=== PATIENT | male | born 1965 ===

== ENCOUNTER 2017-07-27 13:08 | Inpatient (IN) | payer OTHER ==
[2017-07-27 13:27] VITALS: BMI 27.4
--- NOTE | 2017-07-27 14:02 | ED PDOC ---
Arrival/HPI - General Chief Complaint: High Blood Pressure - History of Present Illness Narrative History of Present Illness (Text): 07/27/17 13:58 Pt is a 52 yo M with PMH of DM and HTN presents to ED with complaint of dizziness, dyspnea, and chest pain. Pt states that chest pain is intermittent for the past month. Pt states that chest pain is localized to left side of chest and does not radiate. Pt states chest pain and dyspnea worsens with exertion. Pt states that he became dizzy today, which prompted him to come to the ED. Pt states that he moved from the [facility] 6 months ago and has not seen a doctor since then. Pt states that he was previously on medications for HTN and DM, but has not taken any medications since moving here. Pt denies palpitations, n/v/d, abdominal pain, fever, chills, or RYAN. Past Medical History - Cardiac Hx Hypertension: Yes - Pulmonary Hx Respiratory Disorders: No - Neurological Hx Neurological Disorder: No - HEENT Hx HEENT Disorder: No - Renal Hx Renal Disorder: No - Endocrine/Metabolic Hx Diabetes Mellitus Type 2: Yes - Hematological/Oncological Hx Blood Disorders: No - Integumentary Hx Dermatological Disorder: No - Musculoskeletal/Rheumatological Hx Musculoskeletal Disorders: No - Gastrointestinal Hx Gastrointestinal Disorders: No - Genitourinary/Gynecological Hx Genitourinary Disorders: No - Psychiatric Hx Psychophysiologic Disorder: No Hx Substance Use: No Family/Social History Family/Social History: No Known Family HX Smoking Status: Never Smoked Hx Alcohol Use: No Hx Substance Use: No Allergies/Home Meds Allergies/Adverse Reactions: Allergies No Known Allergies Allergy (Verified 07/27/17 13:27) Home Medications: Home Meds Medication Instructions Recorded Confirmed No Known Home Med 07/27/17 07/27/17 Review of Systems - Review of Systems Constitutional: Normal Eyes: Normal ENT: Normal Respiratory: SOB Cardiovascular: Chest Pain Gastrointestinal: Normal Genitourinary Male: Normal Musculoskeletal: Normal Skin: Normal Neurological: Normal Endocrine: Normal Hemo/Lymphatic: Normal Psychiatric: Normal Physical Exam Vital Signs Temp Pulse Resp BP Pulse Ox 07/27/17 15:55 81 16 119/78 98 07/27/17 15:32 98 H 149/104 H 07/27/17 15:08 105 H 159/122 H 07/27/17 14:31 97.9 F 102 H 17 151/111 H 99 07/27/17 13:17 97.7 F 104 H 18 159/115 H 97 Temperature: Afebrile Blood Pressure: Normal Pulse: Regular Respiratory Rate: Normal Appearance: Positive for: Uncomfortable Pain Distress: Moderate Mental Status: Positive for: Alert and Oriented X 3 - Systems Exam Head: Present: Atraumatic, Normocephalic Extroacular Muscles: Present: EOMI Mouth: Present: Moist Mucous Membranes Neck: Present: Normal Range of Motion Respiratory/Chest: Present: Clear to Auscultation. No: Respiratory Distress, Accessory Muscle Use, Wheezes, Rales, Rhonchi Cardiovascular: Present: Normal S1, S2, Tachycardic. No: Murmurs, Rub, Gallop Abdomen: Present: Tenderness. No: Distention, Peritoneal Signs, Guarding Upper Extremity: Present: Normal Inspection Lower Extremity: Present: Normal Inspection Neurological: Present: GCS=15 Skin: Present: Warm, Dry, Normal Color Psychiatric: Present: Alert, Oriented x 3 Medical Decision Making ED Course and Treatment: 07/27/17 14:11 Assessment: 52 yo M with PMH of HTN and DM presents with chest pain, dyspnea on exertion, and dizziness. Plan: - CBC - CMP - Cardiac Enzymes - EKG - CXR - ASA - Coags - Hydralazine, Labetolol 07/27/17 14:17 EKG showed sinus tachycardia, inverted T-waves V4-V6, LVH. 07/27/17 14:46 CXR showed no active disease 07/27/17 15:16 Troponin I negative 07/27/17 15:[address] Powell, accepts patient under hospitalist service to telemetry. - Lab Interpretations Lab Results: 07/27/17 14:20 07/27/17 14:20 Lab Results 07/27/17 14:20: Sodium 142, Potassium 3.7, Chloride 104, Carbon Dioxide 28, Anion Gap 14, BUN 16, Creatinine 0.8, Est GFR ( Amer) > 60, Est GFR (Non- Af Amer) > 60, Random Glucose 138 H, Calcium 8.9, Magnesium 1.8, Total Bilirubin 0.9, AST 45, ALT 48, Alkaline Phosphatase 57, Lactate Dehydrogenase 771 H, Total Creatine Kinase 116, Troponin I 0.01, Total Protein 6.7, Albumin 3.6, Globulin 3.1, Albumin/Globulin Ratio 1.2 07/27/17 14:20: PT 14.9 H, INR 1.30 H, APTT 29.3 07/27/17 14:20: WBC 7.3, RBC 5.41, Hgb 15.7, Hct 47.0, MCV 86.9, MCH 29.0, MCHC 33.4, RDW 13.8, Plt Count 204, MPV 11.2 H, Gran % 59.9, Lymph % (Auto) 30.8, [place] % (Auto) 7.8 H, Eos % (Auto) 1.1 L, Baso % (Auto) 0.4, Gran # 4.39, Lymph # (Auto) 2.3, [place] # (Auto) 0.6, Eos # (Auto) 0.1, Baso # (Auto) 0.03 07/27/17 13:58: POC Glucose (mg/dL) 138 H - RAD Interpretation Radiology Orders: 07/27/17 13:57 CHEST PORTABLE [RAD] Stat - Medication Orders Current Medication Orders: Acetaminophen (Tylenol 325mg Tab) 650 mg PO Q6H PRN PRN Reason: Fever >100.4 F Aspirin (Ecotrin) 81 mg PO DAILY [facility] Heparin Sodium (Porcine) (Heparin) 5,000 units SC Q12 VENUS PRN Reason: Protocol Lorazepam (Ativan) 1 mg IVP Q6H PRN; Protocol PRN Reason: Anxiety Metoprolol Tartrate (Lopressor) 12.5 mg PO BID [facility] Nitroglycerin (Nitro-Dur 0.2 Mg/Hr Patch) 1 patch TD DAILY [facility] Ondansetron HCl (Zofran Inj) 2 mg IVP Q6H PRN PRN Reason: Nausea/Vomiting Pantoprazole Sodium (Protonix Ec Tab) 40 mg PO 0600 [facility] Discontinued Medications Aspirin (Ecotrin) 81 mg PO STAT STA Stop: 07/27/17 13:58 Last Admin: 07/27/17 14:14 Dose: 81 mg Aspirin (Aspirin) 325 mg PO STAT STA Stop: 07/27/17 14:45 Last Admin: 07/27/17 15:08 Dose: 325 mg Hydralazine HCl (Apresoline) 10 mg IVP ONCE ONE Stop: 07/27/17 14:47 Last Admin: 07/27/17 15:08 Dose: 10 mg IVP Administration Document 07/27/17 15:08 MO (Rec: 07/27/17 15:08 [id number]) Charges for Administration # of IVP Administrations 1 MAR Pulse and Blood Pressure Document 07/27/17 15:08 HI (Rec: 07/27/17 15:08 [id number]) Pulse Pulse Rate (60-90 beats/min) 105 Blood Pressure Blood Pressure (100/60-150/90 mm Hg) 159/122 Labetalol HCl (Trandate) 20 mg IV STAT STA Stop: 07/27/17 15:14 Last Admin: 07/27/17 15:32 Dose: 20 mg eMAR Start Stop Document 07/27/17 15:32 HI (Rec: 07/27/17 15:33 [id number]) Intravenous Solution Start Date 07/27/17 Start Time 15:33 MAR Pulse and Blood Pressure Document 07/27/17 15:32 HI (Rec: 07/27/17 15:33 [id number]) Pulse Pulse Rate (60-90 beats/min) 98 Blood Pressure Blood Pressure (100/60-150/90 mm Hg) 149/104 Nitroglycerin (Nitrostat Sl Tab) 0.4 mg SL STAT STA Stop: 07/27/17 14:45 Last Admin: 07/27/17 15:08 Dose: 0.4 mg Disposition/Present on Arrival - Present on Arrival Any Indicators Present on Arrival: No History of DVT/PE: No History of Uncontrolled Diabetes: No Urinary Catheter: No History of Decub. Ulcer: No History Surgical Site Infection Following: None - Disposition Have Diagnosis and Disposition been Completed?: Yes Diagnosis: Chest pain, Hypertension, accelerated, Non compliance w medication regimen Disposition: HOSPITALIZED Disposition Time: 15:57 Patient Plan: Admission, Telemetry Patient Problems: Current Active Problems Problem Status Onset Chest pain Acute Hypertension, accelerated Acute Non compliance w medication regimen Acute Condition: STABLE
[2017-07-27 14:40] LABS: BASO # 0.03 K/mm3 (0.0-2.0); BASO % 0.4 % (0.0-3.0); EOS # 0.1 (0.0-0.7); EOS % 1.1 % (1.5-5.0); GRAN # 4.39 (1.4-6.5); GRAN % 59.9 % (50.0-68.0); HEMOGLOBIN 15.7 g/dL (14.0-18.0); LYMPH # 2.3 (1.2-3.4); LYMPH % 30.8 % (22.0-35.0); MEAN CELL VOLUME 86.9 fl (80.0-105.0); MEAN CORPUSCULAR HGB CONC 33.4 g/dl (31.0-37.0); MEAN PLATELET VOLUME 11.2 fl (7.0-11.0); MONO # 0.6 (0.1-0.6); MONO % 7.8 % (1.0-6.0); RBC 5.41 10^6/uL (3.5-6.1); RED CELL DISTRIBUTION WIDTH 13.8 % (11.5-14.5); WHITE BLOOD COUNT 7.3 10^3/ul (4.5-11.0)
--- NOTE | 2017-07-27 14:40 | RAD ---
HISTORY: chest pain COMPARISON: No prior. FINDINGS: LUNGS: No infiltrate PLEURA: No significant pleural effusion identified, no pneumothorax apparent. CARDIOVASCULAR: Normal. OSSEOUS STRUCTURES: No significant abnormalities. VISUALIZED UPPER ABDOMEN: Normal. OTHER FINDINGS: None. IMPRESSION: No active disease.
[2017-07-27 14:46] LABS: ALB/GLOB RATIO 1.2 (1.1-1.8); ALBUMIN 3.6 g/dL (3.0-4.8); ALT/SGPT 48 U/L (7-56); AST/SGOT 45 U/L (17-59); BLOOD UREA NITROGEN 16 mg/dL (7-21); CALCIUM 8.9 mg/dL (8.4-10.5); GFR AFRICAN-AMERICAN > 60; GFR NON-AFRICAN AMERICAN > 60; MAGNESIUM 1.8 mg/dL (1.7-2.2)
[2017-07-27 14:55] LABS: INR 1.3 (0.93-1.08); PROTHROMBIN TIME 14.9 SECONDS (9.4-12.5)
[2017-07-27 14:57] LABS: PARTIAL THROMBOPLASTIN TIME 29.3 Seconds (25.1-36.5); TROPONIN I 0.01 ng/mL
[2017-07-27] MEDS ORDERED: Labetalol 5 mg/ml Inj 20ML IV STA (15:13)
--- NOTE | 2017-07-27 16:49 | CP.PCM.HP ---
<Tom Sullivan - Last Filed: 07/27/17 17:02> History of Present Illness - History of Present Illness History of Present Illness: Chief Complaint: Dyspnea on exertion and Intermittent chest pain HPI: Patient is a 52 year old male with a past medical history significant for NIDDM who presents to [facility] ED with complaints of dyspnea on exertion and intermittent chest pain for the past two and a half months.Patient states he can walk on stairs 2 minutes before becoming short of breath however can walk at least 15 minutes before feeling short of breath. Patient states the dyspnea on exertion on stairs only began two and a half months ago; prior to this he had no issue with physical activity. Patient states he sleeps with one pillow at night however sleeps better when in an elevated position. To note patient recently [place] the [place] six months prior. Patient has no seen a physician since. States in the [place] he was non compliant with his healthcare; did not watch his diet or take his diabetic medications as prescribed without any particular reason. Patient just said he eats what he wants and takes his medication when he wants. Patient states that he did have problems controlling his glucose levels back [place] his [place] country and was constantly warned by his PMD of the consequences. Admits to headache and anxiety. Patient states he does not have dizziness currently or prior to coming to the ED. Patient also denies body ache, nausea, vomiting, fevers, chills, diarrhea, abdominal pain, dysuria. PMD: located in the [place] Surgical history: denies Past medical history: Non insulin dependent diabetes mellitus, denies history of hypertension Family history: Diabetes Mellitus, Hypertension, TIA Social history: admits to tobacco use 1 pack a day of ten cigarettes for over 20 years, has quit in the past three months. Denies alcohol abuse, denies illicit drug use. Medications: has only taken medications for his diabetes Allergies: denies Present on Admission - Present on Admission Any Indicators Present on Admission: No Review of Systems - Constitutional Constitutional: absent: Chills, Fever - EENT Eyes: absent: Blurred Vision, Change in Vision Nose/Mouth/Throat: absent: Nasal Congestion, Sore Throat - Cardiovascular Cardiovascular: Chest Pain, Chest Pain with Activity, Dyspnea, Dyspnea on Exertion. absent: Chest Pain at Rest - Respiratory Respiratory: Dyspnea, Dyspnea on Exertion. absent: Cough - Gastrointestinal Gastrointestinal: absent: Abdominal Pain, Diarrhea, Nausea, Vomiting - Genitourinary Genitourinary: absent: Dysuria, Hematuria - Musculoskeletal Musculoskeletal: absent: Limited Range of Motion, Neck Pain - Neurological Neurological: Headaches. absent: Dizziness, Syncope - Psychiatric Psychiatric: Anxiety - Endocrine Endocrine: Flushing Past Patient History - Past Social History Smoking Status: Never Smoked - CARDIAC Hx Hypertension: Yes - PULMONARY Hx Respiratory Disorders: No - NEUROLOGICAL Hx Neurological Disorder: No - HEENT Hx HEENT Problems: No - RENAL Hx Chronic Kidney Disease: No - ENDOCRINE/METABOLIC Hx Diabetes Mellitus Type 2: Yes - HEMATOLOGICAL/ONCOLOGICAL Hx Blood Disorders: No - INTEGUMENTARY Hx Dermatological Problems: No - MUSCULOSKELETAL/RHEUMATOLOGICAL Hx Musculoskeletal Disorders: No - GASTROINTESTINAL Hx Gastrointestinal Disorders: No - GENITOURINARY/GYNECOLOGICAL Hx Genitourinary Disorders: No - PSYCHIATRIC Hx Psychophysiologic Disorder: No Hx Substance Use: No Meds Allergies/Adverse Reactions: Allergies Allergy/AdvReac Type Severity Reaction Status Date / Time No Known Allergies Allergy Verified 07/27/17 13:27 Physical Exam - Constitutional Appears: Non-toxic - Head Exam Head Exam: ATRAUMATIC, NORMAL INSPECTION, NORMOCEPHALIC - Eye Exam Eye Exam: EOMI, Normal appearance - ENT Exam ENT Exam: Mucous Membranes Moist, Normal Exam - Neck Exam Neck exam: Positive for: Normal Inspection - Respiratory Exam Respiratory Exam: Clear to Auscultation Bilateral, NORMAL BREATHING PATTERN. absent: Rales, Rhonchi, Wheezes - Cardiovascular Exam Cardiovascular Exam: REGULAR RHYTHM, +S1, +S2 - GI/Abdominal Exam GI & Abdominal Exam: Normal Bowel Sounds, Soft Additional comments: superficial scratches on abdomen - Extremities Exam Extremities exam: Positive for: normal inspection. Negative for: pedal edema, tenderness - Back Exam Additional comments: flushing noted - Skin Skin Exam: Erythema (on back and face), Warm Results - Vital Signs Recent Vital Signs: Last Vital Signs Temp 97.9 F 07/27/17 14:31 Pulse 81 07/27/17 15:55 Resp 16 07/27/17 15:55 BP 119/78 07/27/17 15:55 Pulse Ox 98 07/27/17 15:55 - Labs Result Diagrams: 07/27/17 14:20 07/27/17 14:20 Labs: Laboratory Results - last 24 hr 07/27/17 07/27/17 07/27/17 13:58 14:20 14:20 WBC 7.3 RBC 5.41 Hgb 15.7 Hct 47.0 MCV 86.9 MCH 29.0 MCHC 33.4 RDW 13.8 Plt Count 204 MPV 11.2 H Gran % 59.9 Lymph % (Auto) 30.8 [place] % (Auto) 7.8 H Eos % (Auto) 1.1 L Baso % (Auto) 0.4 Gran # 4.39 Lymph # (Auto) 2.3 [place] # (Auto) 0.6 Eos # (Auto) 0.1 Baso # (Auto) 0.03 PT 14.9 H INR 1.30 H APTT 29.3 Sodium Potassium Chloride Carbon Dioxide Anion Gap BUN Creatinine Est GFR ( Amer) Est GFR (Non-Af Amer) POC Glucose (mg/dL) 138 H Random Glucose Calcium Magnesium Total Bilirubin AST ALT Alkaline Phosphatase Lactate Dehydrogenase Total Creatine Kinase Troponin I Total Protein Albumin Globulin Albumin/Globulin Ratio 07/27/17 14:20 WBC RBC Hgb Hct MCV MCH MCHC RDW Plt Count MPV Gran % Lymph % (Auto) [place] % (Auto) Eos % (Auto) Baso % (Auto) Gran # Lymph # (Auto) [place] # (Auto) Eos # (Auto) Baso # (Auto) PT INR APTT Sodium 142 Potassium 3.7 Chloride 104 Carbon Dioxide 28 Anion Gap 14 BUN 16 Creatinine 0.8 Est GFR ( Amer) > 60 Est GFR (Non-Af Amer) > 60 POC Glucose (mg/dL) Random Glucose 138 H Calcium 8.9 Magnesium 1.8 Total Bilirubin 0.9 AST 45 ALT 48 Alkaline Phosphatase 57 Lactate Dehydrogenase 771 H Total Creatine Kinase 116 Troponin I 0.01 Total Protein 6.7 Albumin 3.6 Globulin 3.1 Albumin/Globulin Ratio 1.2 Assessment & Plan - Assessment and Plan (Free Text) Assessment: Patient is a 52 year old male with a past medical history significant for NIDDM who presents to [facility] ED with complaints of dyspnea on exertion and intermittent chest pain for the past two and a half months. Plan: Chest pain R/o ACS -Cardiology consulted; further recommendations appreciated -First trop negative, further trops pending -EKG demonstrates inverted t waves, compare with subsequent EKGs -CXR reveals no active disease -Fasting lipid panel ordered for morning -HgA1C -TSH -INR,PTT -Aspirin, metoprolol, nitro patch Dyspnsea on exertion r/o CHF -BNP ordered; results pending -Echocardiogram ordered; results pending -Cardiology consulted -NC 2L -I&O -Head above bed 45 degrees Anxiety -Ativan PRN DVT/GI prophylaxis: Heparin/Protonix <AdeIfrah B - Last Filed: 07/28/17 16:44> Results - Vital Signs Recent Vital Signs: Last Vital Signs Temp 97.9 F 07/28/17 12:00 Pulse 89 07/28/17 14:00 Resp 20 07/28/17 12:00 BP 143/101 H 07/28/17 12:00 Pulse Ox 97 07/28/17 06:00 - Labs Result Diagrams: 07/28/17 04:00 07/28/17 04:00 Labs: Laboratory Results - last 24 hr 07/27/17 07/27/17 07/27/17 16:30 16:30 16:30 WBC RBC Hgb Hct MCV MCH MCHC RDW Plt Count MPV Gran % Lymph % (Auto) [place] % (Auto) Eos % (Auto) Baso % (Auto) Gran # Lymph # (Auto) [place] # (Auto) Eos # (Auto) Baso # (Auto) PT INR APTT Sodium Potassium Chloride Carbon Dioxide Anion Gap BUN Creatinine Est GFR ( Amer) Est GFR (Non-Af Amer) Random Glucose Hemoglobin A1c 6.7 H Calcium Total Bilirubin AST ALT Alkaline Phosphatase Troponin I NT-Pro-B Natriuret Pep 3560 H Total Protein Albumin Globulin Albumin/Globulin Ratio Triglycerides Cholesterol LDL Cholesterol Direct HDL Cholesterol TSH 3rd Generation 1.45 07/27/17 07/28/17 07/28/17 20:15 02:00 04:00 WBC RBC Hgb Hct MCV MCH MCHC RDW Plt Count MPV Gran % Lymph % (Auto) [place] % (Auto) Eos % (Auto) Baso % (Auto) Gran # Lymph # (Auto) [place] # (Auto) Eos # (Auto) Baso # (Auto) PT INR APTT Sodium 140 Potassium 3.5 L Chloride 101 Carbon Dioxide 28 Anion Gap 14 BUN 18 Creatinine 0.8 Est GFR ( Amer) > 60 Est GFR (Non-Af Amer) > 60 Random Glucose 103 Hemoglobin A1c Calcium 9.0 Total Bilirubin 0.6 AST 36 ALT 48 Alkaline Phosphatase 61 Troponin I 0.02 D 0.02 NT-Pro-B Natriuret Pep Total Protein 6.3 Albumin 3.4 Globulin 2.9 Albumin/Globulin Ratio 1.1 Triglycerides 128 Cholesterol 181 LDL Cholesterol Direct 133 H HDL Cholesterol 24 L TSH 3rd Generation 07/28/17 07/28/17 04:00 04:00 WBC 6.2 RBC 5.20 Hgb 14.9 Hct 45.3 MCV 87.1 MCH 28.7 MCHC 32.9 RDW 13.9 Plt Count 212 MPV 11.5 H Gran % 49.0 L Lymph % (Auto) 39.0 H [place] % (Auto) 9.9 H Eos % (Auto) 1.6 Baso % (Auto) 0.5 Gran # 3.02 Lymph # (Auto) 2.4 [place] # (Auto) 0.6 Eos # (Auto) 0.1 Baso # (Auto) 0.03 PT 15.2 H INR 1.31 H APTT 30.3 Sodium Potassium Chloride Carbon Dioxide Anion Gap BUN Creatinine Est GFR ( Amer) Est GFR (Non-Af Amer) Random Glucose Hemoglobin A1c Calcium Total Bilirubin AST ALT Alkaline Phosphatase Troponin I NT-Pro-B Natriuret Pep Total Protein Albumin Globulin Albumin/Globulin Ratio Triglycerides Cholesterol LDL Cholesterol Direct HDL Cholesterol TSH 3rd Generation Attending/Attestation - Attestation I have personally seen and examined this patient.: Yes I have fully participated in the care of the patient.: Yes I have reviewed all pertinent clinical information: Yes Notes (Text): I have seen and examined the patient at bedside. Agree with the above note with the following additions/ exception: Briefly this is 52 year old male with history of NIDDM and former tobacco user who was admitted for evaluation of THAPA , bilateral lower extremity swelling and chest pain. First set of troponin is negative. EKG showed T wave inversion in V4-V6. CXR revealed no cardio pulmonary disease. BNP 3560. Will order serial troponins, Lipid panel, ekg, TSH , A1C and echocardiogram. Start aspirin, lasix, nitro SL prn and lisinopril. Start ISS for now. Will consult cardiology. Upon discharge patient will follow up in [facility] clinic. Dr Ifrah Booker
[2017-07-27 17:44] LABS: MAGNESIUM 1.9 mg/dL (1.7-2.2)
[2017-07-28 04:21] LABS: BASO # 0.03 K/mm3 (0.0-2.0); BASO % 0.5 % (0.0-3.0); EOS # 0.1 (0.0-0.7); EOS % 1.6 % (1.5-5.0); GRAN # 3.02 (1.4-6.5); HEMOGLOBIN 14.9 g/dL (14.0-18.0); LYMPH # 2.4 (1.2-3.4); MEAN CELL VOLUME 87.1 fl (80.0-105.0); MEAN CORPUSCULAR HEMOGLOBIN 28.7 pg (25.0-35.0); MEAN CORPUSCULAR HGB CONC 32.9 g/dl (31.0-37.0); MEAN PLATELET VOLUME 11.5 fl (7.0-11.0); MONO # 0.6 (0.1-0.6); MONO % 9.9 % (1.0-6.0); RBC 5.2 10^6/uL (3.5-6.1); RED CELL DISTRIBUTION WIDTH 13.9 % (11.5-14.5); WHITE BLOOD COUNT 6.2 10^3/ul (4.5-11.0)
[2017-07-28 04:30] LABS: ALB/GLOB RATIO 1.1 (1.1-1.8); ALBUMIN 3.4 g/dL (3.0-4.8); ALT/SGPT 48 U/L (7-56); AST/SGOT 36 U/L (17-59); BLOOD UREA NITROGEN 18 mg/dL (7-21); GFR AFRICAN-AMERICAN > 60; GFR NON-AFRICAN AMERICAN > 60; HDL CHOLESTEROL 24 mg/dL (29-60)
[2017-07-28 04:43] LABS: LDL CHOLESTEROL 133 mg/dL (0-129)
[2017-07-28 04:47] LABS: INR 1.31 (0.93-1.08); PARTIAL THROMBOPLASTIN TIME 30.3 Seconds (25.1-36.5); PROTHROMBIN TIME 15.2 SECONDS (9.4-12.5)
[2017-07-28] MEDS: Pantoprazole 40 mg EC Tab PO SCH (05:05)
--- NOTE | 2017-07-28 08:47 | CARD ---
APPROVED REPORT EKG Measurement Heart [id number] <Conclusion> Sinus tachycardia Possible Left atrial enlargement Left ventricular hypertrophy STTW changes c/w ischemia Prolonged QTc
[2017-07-28] MEDS ORDERED: Nitroglycerin 0.2 mg/hr Top Patch TD SCH (10:00)
[2017-07-28] MEDS ORDERED: Potassium Chloride 20 mEq ER Tab PO ONE (10:20)
--- NOTE | 2017-07-28 10:30 | CP.PCM.PN ---
Subjective - Date & Time of Evaluation Date of Evaluation: 07/28/17 Time of Evaluation: 08:00 - Subjective Subjective: Patient seen and examined at bedside in no acute distress. Patient states the shortness of breath has resolved as well as chest pain. Patient also states he anxiety he had during admission has resolved. Denies nausea, vomiting, diarrhea , abdominal pain, headache, cough, fevers, chills. Objective - Vital Signs/Intake and Output Vital Signs (last 24 hours): Temp Pulse Resp BP Pulse Ox 98.0 F 91 H 0 L 147/102 H 97 07/28/17 06:00 07/28/17 09:56 07/28/17 06:00 07/28/17 09:56 07/28/17 06:00 - Medications Medications: Current Medications Acetaminophen (Tylenol 325mg Tab) 650 mg PO Q6H PRN PRN Reason: Fever >100.4 F Aspirin (Ecotrin) 81 mg PO DAILY [facility] Last Admin: 07/28/17 09:56 Dose: 81 mg Atorvastatin Calcium (Lipitor) 20 mg PO DIN [facility] Heparin Sodium (Porcine) (Heparin) 5,000 units SC Q12 VENUS PRN Reason: Protocol Last Admin: 07/28/17 09:55 Dose: 5,000 units Insulin Human Regular (Humulin R Low) 0 units SC ACHS [facility] PRN Reason: Protocol Lisinopril (Zestril) 10 mg PO DAILY [facility] Last Admin: 07/28/17 09:56 Dose: 10 mg Lorazepam (Ativan) 1 mg IVP Q6H PRN; Protocol PRN Reason: Anxiety Nitroglycerin (Nitro-Dur 0.2 Mg/Hr Patch) 1 patch TD DAILY [facility] Ondansetron HCl (Zofran Inj) 2 mg IVP Q6H PRN PRN Reason: Nausea/Vomiting Pantoprazole Sodium (Protonix Ec Tab) 40 mg PO 0600 [facility] Last Admin: 07/28/17 05:05 Dose: Not Given - Labs Labs: 07/28/17 04:00 07/28/17 04:00 PT 15.2 SECONDS (9.4-12.5) H 07/28/17 04:00 INR 1.31 (0.93-1.08) H 07/28/17 04:00 APTT 30.3 Seconds (25.1-36.5) 07/28/17 04:00 - Constitutional Appears: Non-toxic, No Acute Distress - Head Exam Head Exam: ATRAUMATIC, NORMAL INSPECTION, NORMOCEPHALIC - Eye Exam Eye Exam: EOMI, Normal appearance - ENT Exam ENT Exam: Mucous Membranes Moist, Normal Exam - Neck Exam Neck Exam: Normal Inspection - Respiratory Exam Respiratory Exam: Clear to Ausculation Bilateral, NORMAL BREATHING PATTERN. absent: Accessory Muscle Use, Rhonchi, Wheezes, Respiratory Distress - Cardiovascular Exam Cardiovascular Exam: REGULAR RHYTHM, +S1, +S2 - GI/Abdominal Exam GI & Abdominal Exam: Soft, Normal Bowel Sounds - Extremities Exam Extremities Exam: Normal Inspection - Back Exam Back Exam: NORMAL INSPECTION - Neurological Exam Neurological Exam: Alert, Awake, CN II-XII Intact - Psychiatric Exam Psychiatric exam: Normal Affect, Normal Mood - Skin Skin Exam: Intact, Normal Color, Warm Assessment and Plan - Assessment and Plan (Free Text) Assessment: Patient is a 52 year old male with a past medical history significant for NIDDM who presents to [facility] ED with complaints of dyspnea on exertion and intermittent chest pain for the past two and a half months. Plan: Chest pain R/o ACS -Cardiology consulted; further recommendations appreciated -First trop 0.01, second 0.02, third 0.02. -EKG demonstrates inverted t waves -CXR reveals no active disease -Fasting lipid panel reveals Triglycerides 128, total cholesterol 181, LDL 133, HDL 24 -HgA1C 6.7 -TSH 1.45 -INR 1.31 ,PTT 15.2 -Aspirin, metoprolol, nitro patch -Physical therapy Dyspnsea on exertion r/o CHF -BNP 3560; lasix started -Echocardiogram ordered; results pending -Cardiology consulted -NC 2L -I&O -Head above bed 45 degrees -Daily weights -NPO after midnight Anxiety -Ativan PRN DVT/GI prophylaxis: Heparin/Protonix
[2017-07-28] MEDS: Insulin Reg-LOW-Coverage SC SCH ×4 (11:57→23:28)
[2017-07-29] MEDS: Pantoprazole 40 mg EC Tab PO SCH (05:14)
[2017-07-29 05:49] VITALS: O2SAT 96
[2017-07-29 06:21] LABS: BASO # 0.02 K/mm3 (0.0-2.0); BASO % 0.3 % (0.0-3.0); EOS # 0.2 (0.0-0.7); GRAN # 4.42 (1.4-6.5); GRAN % 59.1 % (50.0-68.0); HEMOGLOBIN 14.9 g/dL (14.0-18.0); LYMPH # 2.2 (1.2-3.4); LYMPH % 29.1 % (22.0-35.0); MEAN CELL VOLUME 87.3 fl (80.0-105.0); MEAN CORPUSCULAR HEMOGLOBIN 28.7 pg (25.0-35.0); MEAN CORPUSCULAR HGB CONC 32.9 g/dl (31.0-37.0); MONO # 0.7 (0.1-0.6); MONO % 9.5 % (1.0-6.0); RBC 5.19 10^6/uL (3.5-6.1); WHITE BLOOD COUNT 7.5 10^3/ul (4.5-11.0)
[2017-07-29 07:13] LABS: ALBUMIN 3.1 g/dL (3.0-4.8); ALT/SGPT 48 U/L (7-56); AST/SGOT 31 U/L (17-59); BLOOD UREA NITROGEN 20 mg/dL (7-21); CALCIUM 8.6 mg/dL (8.4-10.5); GFR AFRICAN-AMERICAN > 60; GFR NON-AFRICAN AMERICAN > 60
[2017-07-29] MEDS ORDERED: Potassium Chloride 20 mEq ER Tab PO STA (07:44)
[2017-07-29] MEDS: Insulin Reg-LOW-Coverage SC SCH ×3 (07:58→17:35)
--- NOTE | 2017-07-29 10:18 | CON ---
DATE: 07/28/2017 LOCATION: Room 269, bed 1. REASON FO CONSULTATION: Chest pain. HISTORY OF PRESENT ILLNESS: Patient is a Finnish-speaking male, 52-year-old, known case of diabetes mellitus. He states, first time he found out that the blood pressure was high was yesterday. Admitted with the history that he usually gets shortness of breath on exertion going upstairs and when he takes a deep breath, he feels pain at the localized part on the left lower chest along with the left lower sternal border and denies any exertional chest pain. Denies any PND. Denies swelling of legs. Episode of pain before admission lasted about 1 hour. PAST MEDICAL HISTORY: Positive for diabetes mellitus. PERSONAL HISTORY: Stopped smoking about 3 months ago, Used to smoke 10 cigarettes a day. Stopped drinking 5 to 6 years ago, used to drink3 to 4 beers on weekend. FAMILY HISTORY: Father had diabetes mellitus. Mother has CVA. ALLERGIES: DENIES ANY ALLERGIES. MEDICATIONS: Medications at home, patient does not remember what medication he was taking. PHYSICAL EXAMINATION: VITAL SIGNS: Blood pressure 139/102, respirations 18, pulse 80, temperature 98.0. HEENT: Head: Normocephalic. Eyes: Pupils normal. Conjunctivae normal. Nose and throat: Normal. NECK: JVP low. Carotid equal. THORAX: AP diameter normal. LUNGS: Clear. CARDIOVASCULAR: S1, S2. ABDOMEN: Soft, nontender. No organomegaly. Bowel sounds normal. EXTREMITIES: No clubbing, no cyanosis. LABORATORY DATA: WBC 6.2, hemoglobin 14.9, hematocrit 45.3, platelets 212. Sodium 140, potassium 3.5, BUN 18, creatinine 0.8. AST, ALT normal; total protein, albumin normal. Random glucose was 103. Cholesterol 181, LDL 133, triglyceride 128. TSH 1.45. Chest x-ray showed clear lungs. EKG showed regular sinus rhythm, left ventricular hypertrophy pattern, ST-T changes pattern present which can be due to LVH. DIAGNOSES: Chest pain only on inspiration, shortness of breath, uncontrolled hypertension, diabetes mellitus, high cholesterol, hypokalemia. PLAN: Give K therapy. Give Naprosyn b.i.d. for chest pain on inspiration . Right now, patient does not have any chest pain. Patient is on aspirin 81 mg daily, heparin 5000 units subcu q. 12 hours. We will discontinue IV Lasix. Lipitor 20 mg daily, Protonix 40 daily, lisinopril 10 mg daily. We will monitor the blood pressure. If it stays high, we will adjust the medication. Patient should do echo and nuclear stress test later on. Pain is atypical from the cardiac point of view. GOAL: Patient who is diabetic is to keep LDL below 70. Patient's history and physical and exam was done through an court interpreter. Josie Voss MD
[2017-07-29] MEDS ORDERED: Aminophylline 25 mg/ml Inj ONE (10:59)
[2017-07-29] MEDS ORDERED: Verapamil 2 ML ONE (12:54)
[2017-07-29] MEDS ORDERED: Lidocaine 2% Inj (20ml) ONE (12:54)
[2017-07-29] MEDS ORDERED: Nitroglycerin 50mg in D5W 50 MG/250 ML BOTTLE IV ONE (12:55)
[2017-07-29] MEDS ORDERED: Phenylephrine 10 mg/ml Inj ONE (12:55)
[2017-07-29] MEDS ORDERED: HEPARIN SODIUM/NS 2,000 ML IV ONE (12:55)
[2017-07-29] MEDS ORDERED: Iohexol 350mgl/ml 50 ML ONE (12:55)
[2017-07-29] MEDS ORDERED: Iohexol 350 MG/100 ML VIAL ONE (13:01)
[2017-07-29] MEDS ORDERED: Midazolam 2 MG/2 ML VIAL ONE (13:29)
[2017-07-29] MEDS ORDERED: Bacitracin 500 Units/gm Oint Foilpak UD TOP ONE (14:07)
[2017-07-29] MEDS ORDERED: Sodium Chloride 0.9% 1,000 ML IV SCH (14:15)
--- NOTE | 2017-07-29 15:00 | CARD ---
APPROVED REPORT EXAM: Two-dimensional and M-mode echocardiogram with Doppler and color Doppler. 2D DIMENSIONS Left Atrium (2D)4.9 (1.6-4.0cm)IVSd1.2 (0.7-1.1cm) LVDd5.0 (3.9-5.9cm)PWd1.3 (0.7-1.1cm) LVDs4.8 (2.5-4.0cm)FS (%) 5.0 % LVEF (%)10.9 (>50%) M-Mode DIMENSIONS Aortic Root3.30 (2.2-3.7cm)Aortic Cusp Exc.1.80 (1.5-2.0cm) Aortic Valve AoV Peak Hbocjsmr64.6cm/Yadira Peak GR.4mmHg Mitral Valve E/A ratio0.0 TDI E/Lateral E'0.0E/Medial E'0.0 Tricuspid Valve TR Peak Ahtaonvo158es/sRAP [id number] Peak Gr.54mmHg [id number] LEFT VENTRICLE The Left Ventricle is borderline dilated. There is normal left ventricular wall thickness. The systolic function is severely impaired. There is global hypokinesis of the left ventricle. No left ventricle thrombus noted on this study. RIGHT VENTRICLE The right ventricle is borderline dilated. There is normal right ventricular wall thickness. RV Systolic function is moderately reduced. ATRIA The left atrium is mildly dilated. The right atrium is mildly dilated. AORTIC VALVE The aortic valve is mildly thickened. There is mild aortic regurgitation. MITRAL VALVE The mitral valve is mildly thickened. Mitral regurgitation is mild. TRICUSPID VALVE There is severe tricuspid regurgitation. There is moderate to severe pulmonary hypertension. PULMONIC VALVE There is mild pulmonic valvular regurgitation. GREAT VESSELS The aortic root is normal in size. The IVC is dilated. The IVC collapses <50% with inspiration. PERICARDIAL EFFUSION There is no pericardial effusion. <Conclusion> The Left Ventricle is borderline dilated. There is normal left ventricular wall thickness. The systolic function is severely impaired. There is global hypokinesis of the left ventricle. No left ventricle thrombus noted on this study. There is mild aortic regurgitation. Mitral regurgitation is mild. There is severe tricuspid regurgitation. There is moderate to severe pulmonary hypertension.
--- NOTE | 2017-07-29 16:43 | CARD ---
APPROVED REPORT Procedure(s) performed: Left Heart Catheterization HISTORY The patient is a 52 year-old male with a history of : previous CVA , diabetes mellitus with no treatment , chronic lung disease, tobacco history() : The patient is a current smoker , hypertension , dyslipidemia , cerebrovascular disease , Admitted with with Chest pain, Sob ,THAPA and severely decresed LV FX.. INDICATION The indication(s) include : positive stress test, chest pain, dyspnea. CASE TECHNIQUE The patient was brought urgently to the Cardiac Catheterization Laboratory in a fasting state and was prepped and draped in a sterile manner. The left wrist was infiltrated with 2% Lidocaine subcutaneous anesthesia. A 6FR GLIDESHEATH ACCESS KIT sheath was inserted into the left radial artery without difficulty. Coronary angiography was performed using coronary diagnostic catheters. The left coronary system was accessed and visualized with a Diagnostic ,5 Fr JL 4 catheter. The right coronary system was accessed and visualized with a Diagnostic ,5 Fr JR 4 catheter. The left ventricle was accessed and visualized with a 5 Fr Pigtail 145 (Angled) catheter. Left ventricular/Aortic Valve gradient assessed on pullback. Left ventriculogram was performed in [place] projection. Closure device was deployed with a Fr TR Band (Regular) without any complications. The patient tolerated the procedure well and there were no complications associated with the procedure. Vessel Analysis The patient's coronary anatomy is co-dominant. The left main coronary artery is a large size vessel with diffuse calcification noted throughout this vessel and without significant stenosis. The left main bifurcates to the left anterior descending and circumflex. The left anterior descending artery is a medium size vessel with diffuse calcification noted throughout this vessel and without significant stenosis. The first diagonal branch is a small size vessel with diffuse calcification noted throughout this vessel and without significant stenosis. The circumflex artery is a medium size vessel with diffuse calcification noted throughout this vessel and without significant stenosis. The first obtuse marginal branch is a small size vessel with diffuse calcification noted throughout this vessel and without significant stenosis. The ramus intermedius artery is a small size vessel with diffuse calcification noted throughout this vessel and without significant stenosis. There is a 55% stenosis in the ostial segment. The right coronary artery is a large size vessel with intimal irregularities and without significant stenosis. The right posterior descending artery is a medium size vessel without significant stenosis. The right posterolateral branch is a medium size vessel without significant stenosis. Left Ventricle The left ventricle is enlarged in size with Moderately decreased contractility. Non-Ischemic cardiomyopathy. The left ventricular ejection fraction is estimated to be 20-25%. The left ventricular end diastolic pressure is 20-25 mmHg. There was no gradient across the aortic valve upon pullback. Conclusion Non Obstructive CAD limited to small Ramus intermedius ostial 55% Non Ischemic CMP,EF-20-25%,EDP-20-25 mmof hg Recommendations Aggressive Medical TherapyCardiac Risk Reduction Program Dig, Diuretic, aldactone, DARRICK, Coreg, statin and ASA -81 mg Re-assess LV Fx in 3-6 months,if remains <35% consider AICD. Dr. Powell
[2017-07-29] MEDS ORDERED: Potassium Chloride 20 mEq ER Tab PO ONE (17:00)
--- NOTE | 2017-07-29 18:54 | PN ---
DATE: ADDENDUM Patient underwent cardiac catheterization that revealed mild to moderate coronary artery disease, essentially normal major coronaries, left main normal, LAD normal, small circumflex, large RCA dominant essentially free of significant disease. Ejection fraction 20% to 25%, ostial ramus has a 55% stenosis. Medical treatment recommended. We will start digoxin 0.25 mg daily. Continue ramipril 10 mg daily. Add Lasix 40 mg daily, K-Dur 20 mEq daily and add Aldactone 25 mg daily, digoxin and atorvastatin. Reassess LV function is 36, which remained low. Consider AICD. I discussed with resident taking care of pt. patient okay to be discharged from cardiac point of view after 06:00 p.m. Josie Riddle MD MTDD
[2017-07-29 19:37] VITALS: RESP 18
--- NOTE | 2017-07-29 20:07 | CP.PCM.DIS ---
<Tom Sullivan - Last Filed: 07/30/17 01:46> Provider - Provider Date of Admission: 07/27/17 15:38 Attending physician: Tam Aguila MD Primary care physician: NO PRIMARY CARE PROVIDER Consults: Cardiology: Dr. Riddle Time Spent in preparation of Discharge (in minutes): 45 Diagnosis - Discharge Diagnosis (1) Non-ischemic cardiomyopathy Status: Acute Priority: High (2) Diabetes mellitus Status: Acute Priority: High (3) Hypertension Status: Acute Priority: High Hospital Course - Lab Results Lab Results: Most Recent Lab Values WBC 7.5 10^3/ul (4.5-11.0) D 07/29/17 05:40 RBC 5.19 10^6/uL (3.5-6.1) 07/29/17 05:40 Hgb 14.9 g/dL (14.0-18.0) 07/29/17 05:40 Hct 45.3 % (42.0-52.0) 07/29/17 05:40 MCV 87.3 fl (80.0-105.0) 07/29/17 05:40 MCH 28.7 pg (25.0-35.0) 07/29/17 05:40 MCHC 32.9 g/dl (31.0-37.0) 07/29/17 05:40 RDW 14.0 % (11.5-14.5) 07/29/17 05:40 Plt Count 193 10^3/uL (120.0-450.0) 07/29/17 05:40 MPV 11.0 fl (7.0-11.0) 07/29/17 05:40 Gran % 59.1 % (50.0-68.0) 07/29/17 05:40 Lymph % (Auto) 29.1 % (22.0-35.0) 07/29/17 05:40 [place] % (Auto) 9.5 % (1.0-6.0) H 07/29/17 05:40 Eos % (Auto) 2.0 % (1.5-5.0) 07/29/17 05:40 Baso % (Auto) 0.3 % (0.0-3.0) 07/29/17 05:40 Gran # 4.42 (1.4-6.5) 07/29/17 05:40 Lymph # (Auto) 2.2 (1.2-3.4) 07/29/17 05:40 [place] # (Auto) 0.7 (0.1-0.6) H 07/29/17 05:40 Eos # (Auto) 0.2 (0.0-0.7) 07/29/17 05:40 Baso # (Auto) 0.02 K/mm3 (0.0-2.0) 07/29/17 05:40 PT 15.2 SECONDS (9.4-12.5) H 07/28/17 04:00 INR 1.31 (0.93-1.08) H 07/28/17 04:00 APTT 30.3 Seconds (25.1-36.5) 07/28/17 04:00 Sodium 139 mmol/L (132-148) 07/29/17 05:40 Potassium 3.3 mmol/L (3.6-5.0) L 07/29/17 05:40 Chloride 102 mmol/L (98-107) 07/29/17 05:40 Carbon Dioxide 28 mmol/L (21-33) 07/29/17 05:40 Anion Gap 12 (10-20) 07/29/17 05:40 BUN 20 mg/dL (7-21) 07/29/17 05:40 Creatinine 0.9 mg/dl (0.8-1.5) 07/29/17 05:40 Est GFR ( Amer) > 60 07/29/17 05:40 Est GFR (Non-Af Amer) > 60 07/29/17 05:40 POC Glucose (mg/dL) 81 mg/dL (65-110) 07/29/17 16:14 Random Glucose 100 mg/dL (70-110) 07/29/17 05:40 Hemoglobin A1c 6.7 % (4.2-6.5) H 07/27/17 16:30 Calcium 8.6 mg/dL (8.4-10.5) 07/29/17 05:40 Phosphorus 3.1 mg/dL (2.5-4.5) 07/27/17 15:10 Magnesium 1.9 mg/dL (1.7-2.2) 02/17/18 15:10 Total Bilirubin 0.7 mg/dL (0.2-1.3) 07/29/17 05:40 AST 31 U/L (17-59) 07/29/17 05:40 ALT 48 U/L (7-56) 07/29/17 05:40 Alkaline Phosphatase 62 U/L (38-126) 07/29/17 05:40 Lactate Dehydrogenase 771 U/L (333-699) H 07/27/17 14:20 Total Creatine Kinase 116 U/L (35-230) 07/27/17 14:20 Troponin I 0.02 ng/mL 07/28/17 02:00 NT-Pro-B Natriuret Pep 3560 pg/mL (0-450) H 07/27/17 16:30 Total Protein 6.1 g/dL (5.8-8.3) 07/29/17 05:40 Albumin 3.1 g/dL (3.0-4.8) 07/29/17 05:40 Globulin 3.0 gm/dL 07/29/17 05:40 Albumin/Globulin Ratio 1.0 (1.1-1.8) L 07/29/17 05:40 Triglycerides 128 mg/dL (35-160) 07/28/17 04:00 Cholesterol 181 mg/dL (130-200) 07/28/17 04:00 LDL Cholesterol Direct 133 mg/dL (0-129) H 07/28/17 04:00 HDL Cholesterol 24 mg/dL (29-60) L 07/28/17 04:00 TSH 3rd Generation 1.45 mIU/mL (0.46-4.68) 07/27/17 16:30 - Hospital Course Hospital Course: Patient is a 52 year old male with a past medical history of diabetes mellitus II and hypertension who presented with complaints of dyspnea on exertion associated with intermittent shortness of breath on exertion for the past two and a half months. Patient, who recently moved from the [place] stated that he was non compliant with his medications back home and has not sought medical treatment since moving to this country. When patient was admitted to the emergency department, BNP was found to be elevated. Cardiology was consulted for further evaluation and treatment. Echocardiogram was ordered which revealed impaired systolic function. Nuclear stress testing was then performed which was found to be abnormal demonstrating severe left ventricular dysfunction and hypokinesis. Catheterization was later performed which revealed non ischemic cardiomyopathy. Patient was then started on aspirin, lipitor, coreg , lanoxin, lasix, zestril, and aldactone and instructed to [place] [facility] [place]. The importance of medication compliance was discussed with patient as this has been an issue in the past with patient. Diet was also thoroughly discussed with patient as he stated he does not eat healthily. Also discussed with patient the need for insurance for future appointments as he is new in the country and currently does not have any. Patient and family was in agreement with all the above. Patient was then discharged. Case reviewed and discussed with Dr. Mingo Sullivan PGY1 Discharge Exam - Head Exam Head Exam: ATRAUMATIC, NORMAL INSPECTION, NORMOCEPHALIC - Eye Exam Eye Exam: EOMI, Normal appearance Pupil Exam: NORMAL ACCOMODATION - ENT Exam ENT Exam: Mucous Membranes Moist - Respiratory Exam Respiratory Exam: Clear to PA & Lateral, NORMAL BREATHING PATTERN, UNREMARKABLE - Cardiovascular Exam Cardiovascular Exam: +S1, +S2, Systolic Murmur. absent: Bradycardia, Tachycardia - GI/Abdominal Exam GI & Abdominal Exam: Normal Bowel Sounds, Unremarkable - Back Exam Back exam: NORMAL INSPECTION - Neurological Exam Neurological exam: Alert, Oriented x3 - Psychiatric Exam Psychiatric exam: Normal Affect, Normal Mood - Skin Skin Exam: Normal Color, Warm Discharge Plan - Discharge Medications Prescriptions: Aspirin [Ecotrin] 81 mg PO DAILY #30 tabec Atorvastatin [Lipitor] 20 mg PO DIN #30 tab Carvedilol [Coreg] 3.125 mg PO BID #60 tab Digoxin [Lanoxin] 0.25 mg PO 1400 #30 tab Furosemide [Lasix] 40 mg PO DAILY #30 tab Lisinopril [Zestril] 10 mg PO DAILY #30 tab Spironolactone [Aldactone] 25 mg PO DAILY #30 tab - Follow Up Plan Condition: STABLE Disposition: HOME/ ROUTINE Instructions: Cardiac Catheterization, Chest Pain Additional Instructions: Discharge instructions 1. [place] up [place] [facility] [place] 1 week: [phone] to schedule an appointment at your nearest [facility]. 2. Follow up at [facility] Cardio clinic, within 1-[address] weeks[address], [address] [address] [facility] [place] ASA 81mg daily lipitor 20mg every dinner carvedilil 3.125mg twice daily digoxin 0.25mg every afternoon lasix 40mg daily lisinopril 10mg daily Aldactone 25mg daily Referrals: [facility], Cardiac Clinic [Other] [facility] at [facility] [place]Outside] <Tam Aguila - Last Filed: 07/30/17 07:44> Provider - Provider Date of Admission: 07/27/17 15:38 Attending physician: Tam Aguila MD Primary care physician: NO PRIMARY CARE PROVIDER Hospital Course - Lab Results Lab Results: Most Recent Lab Values WBC 7.5 10^3/ul (4.5-11.0) D 07/29/17 05:40 RBC 5.19 10^6/uL (3.5-6.1) 07/29/17 05:40 Hgb 14.9 g/dL (14.0-18.0) 07/29/17 05:40 Hct 45.3 % (42.0-52.0) 07/29/17 05:40 MCV 87.3 fl (80.0-105.0) 07/29/17 05:40 MCH 28.7 pg (25.0-35.0) 07/29/17 05:40 MCHC 32.9 g/dl (31.0-37.0) 07/29/17 05:40 RDW 14.0 % (11.5-14.5) 07/29/17 05:40 Plt Count 193 10^3/uL (120.0-450.0) 07/29/17 05:40 MPV 11.0 fl (7.0-11.0) 07/29/17 05:40 Gran % 59.1 % (50.0-68.0) 07/29/17 05:40 Lymph % (Auto) 29.1 % (22.0-35.0) 07/29/17 05:40 [place] % (Auto) 9.5 % (1.0-6.0) H 07/29/17 05:40 Eos % (Auto) 2.0 % (1.5-5.0) 07/29/17 05:40 Baso % (Auto) 0.3 % (0.0-3.0) 07/29/17 05:40 Gran # 4.42 (1.4-6.5) 07/29/17 05:40 Lymph # (Auto) 2.2 (1.2-3.4) 07/29/17 05:40 [place] # (Auto) 0.7 (0.1-0.6) H 07/29/17 05:40 Eos # (Auto) 0.2 (0.0-0.7) 07/29/17 05:40 Baso # (Auto) 0.02 K/mm3 (0.0-2.0) 07/29/17 05:40 PT 15.2 SECONDS (9.4-12.5) H 07/28/17 04:00 INR 1.31 (0.93-1.08) H 07/28/17 04:00 APTT 30.3 Seconds (25.1-36.5) 07/28/17 04:00 Sodium 139 mmol/L (132-148) 07/29/17 05:40 Potassium 3.3 mmol/L (3.6-5.0) L 07/29/17 05:40 Chloride 102 mmol/L (98-107) 07/29/17 05:40 Carbon Dioxide 28 mmol/L (21-33) 07/29/17 05:40 Anion Gap 12 (10-20) 07/29/17 05:40 BUN 20 mg/dL (7-21) 07/29/17 05:40 Creatinine 0.9 mg/dl (0.8-1.5) 07/29/17 05:40 Est GFR ( Amer) > 60 07/29/17 05:40 Est GFR (Non-Af Amer) > 60 07/29/17 05:40 POC Glucose (mg/dL) 81 mg/dL (65-110) 07/29/17 16:14 Random Glucose 100 mg/dL (70-110) 07/29/17 05:40 Hemoglobin A1c 6.7 % (4.2-6.5) H 07/27/17 16:30 Calcium 8.6 mg/dL (8.4-10.5) 07/29/17 05:40 Phosphorus 3.1 mg/dL (2.5-4.5) 07/27/17 15:10 Magnesium 1.9 mg/dL (1.7-2.2) 07/27/17 15:10 Total Bilirubin 0.7 mg/dL (0.2-1.3) 07/29/17 05:40 AST 31 U/L (17-59) 07/29/17 05:40 ALT 48 U/L (7-56) 07/29/17 05:40 Alkaline Phosphatase 62 U/L (38-126) 07/29/17 05:40 Lactate Dehydrogenase 771 U/L (333-699) H 07/27/17 14:20 Total Creatine Kinase 116 U/L (35-230) 07/27/17 14:20 Troponin I 0.02 ng/mL 07/28/17 02:00 NT-Pro-B Natriuret Pep 3560 pg/mL (0-450) H 07/27/17 16:30 Total Protein 6.1 g/dL (5.8-8.3) 07/29/17 05:40 Albumin 3.1 g/dL (3.0-4.8) 07/29/17 05:40 Globulin 3.0 gm/dL 07/29/17 05:40 Albumin/Globulin Ratio 1.0 (1.1-1.8) L 07/29/17 05:40 Triglycerides 128 mg/dL (35-160) 07/28/17 04:00 Cholesterol 181 mg/dL (130-200) 07/28/17 04:00 LDL Cholesterol Direct 133 mg/dL (0-129) H 07/28/17 04:00 HDL Cholesterol 24 mg/dL (29-60) L 07/28/17 04:00 TSH 3rd Generation 1.45 mIU/mL (0.46-4.68) 07/27/17 16:30 Attending/Attestation - Attestation I have personally seen and examined this patient.: Yes I have fully participated in the care of the patient.: Yes I have reviewed all pertinent clinical information, including history, physical exam and plan: Yes Notes (Text): 07/30/17 07:30 Attending note; Patient seen and examined with resident. Patient is a 52 year old male with history of diabetes diet-controlled, hypertension and former smoker was admitted with shortness of breath who was admitted and chest pain. troponin is negative. EKG showed T wave inversion in V4-V6. CXR revealed no cardio pulmonary disease. Cardiology evaluation appreciated. Patient had cardiac cath showed significant cardiomyopathy. Started on medications. Patient needs repeat echo after medical treatment in 3 months. Might need AICD placement if ejection fraction does not improve after medical treatment. Patient [facility]. All medications delivered from pharmacy to the bedside. Patient is strongly advised to complete fito Paperwork. Patient will be discharged home today. Patient will [place] [facility] [place]. Patient will be referred to [facility] cardiology clinic. 07/30/17 07:44
--- NOTE | 2017-07-29 20:09 | PN ---
DATE: 07/29/2017 REASON FOR CONSULTATION AND FOLLOWUP: Chest pain, cardiac evaluation. SUBJECTIVE: The patient denies any chest pain, shortness of breath, or any palpitation. The patient is not in apparent distress. PHYSICAL EXAMINATION: VITAL SIGNS: Temperature afebrile, heart rate 84, blood pressure 145/95. HEENT: PERRLA, intact. NECK: Supple. No carotid bruit or thyromegaly. CHEST: Clear to auscultation. HEART: S1 and S2, regular. ABDOMEN: Soft. EXTREMITIES: Clubbing and cyanosis negative. LABORATORY DATA: Blood workup as follows: WBC 7.5, hemoglobin 14.9, hematocrit 45.3, platelet count 193. Chemistry showed sodium 139, potassium 3.9, chloride 102, carbon dioxide 28, anion gap of 12. BUN 20, creatinine 0.9. Total protein 6.1, albumin 3.1, albumin and globulin ratio 1. Total cholesterol 180 with LDL 133, HDL 24. Blood sugar 131. IMPRESSION: Atypical chest pain, diabetes, hypertension, hyperlipidemia, obesity, multiple coronary artery disease. The patient is cleared for stress test today. The patient had echo done that shows four chamber dilatation, significantly decreased left ventricular function, ejection fraction approximately 15%, preliminary report. cardiac catheterization recommended, the patient after the stress test picture will go for a cardiac catheterization because of significant decrease in left ventricular function explained to the patient. The patient agreed, we will proceed for cardiac catheterization. Josie Riddle MD
[2017-07-29] MEDS ORDERED: Bacitracin 500 Units/gm Oint Foilpak UD ONE (20:10)
[2017-07-29 21:15] VITALS: TEMP 98.2
[2017-07-29 21:16] VITALS: BP 166/98; PULSE 95
--- NOTE | 2017-07-29 21:29 | CARD ---
APPROVED REPORT Protocol: LEXISCAN Test Type: Lexiscan Sestamibi Stress Test Attending Physician: Dr. Josie Voss Referring Physician: Dr. Toni Powell Test Indications: Chest Pain Height:5 ft 7 in Weight:185lbs Medications: Aspirin, Lipitor, Heparin, Insulin, Zestril, Nitro-dur, Protonix Medical History: 52 y/o male with a history of diabetes, shortness of breath Target HR: 166 bpm Resting ECG: RSR.LVH. ST_T Changes. Resting Heart Rate: 103 bpm Resting Blood Pressure: 126/74mmHg Submaximum (85%): 141 bpm PROCEDURE Pharmacologic stress testing was performed using 0.4mg per 5ml of regadenoson given intravenously over 7-10 seconds. POST EXERCISE Reason for Termination: Protocol completed Target HR: No Max HR: 100 bpm 68% of Maximum Predicted HR: 166 bpm Exercise duration: 00:31 min:sec, 0 Stage Exercise capacity: 1.0METs Max Blood Pressure: 126/74mmHg Blood Pressure response to exercise: normal resting BP - appropriate response Heart Rate response to exercise: appropriate Chest Pain: No, none Angina index: 0 Arrhythmia: No, none ST Change: Yes, No Additional ST_T Changes. Deviation: 0 mm INTERPRETATION Stress EKG Conclusion: IV LEXISCAN NUCLEAR STRESS TEST NEGATIVE FOR CHEST PAIN. NO ADDITIONAL ST-T CHANGES. NUCLEAR SCAN REPORT PENDING. Signed by Josie Voss Electronically Approved: 07/29/2017 11:57:45 EXAM: Myocardial Perfusion REST/STRESS Stress Test Type: Pharmacologic Imaging Protocol Rest Spect myocardial perfusion imaging was performed in supine position 52 minutes following the injection of 10.3 mCi of Tc-99 Myoview. At peak stress, the patient was injected intravenously with 30.4mCi of Tc-99 tetrofosmin after an infusion time of minutes and 10 seconds. Gated Stress Spect was performed 63 minutes after intravenous Tc-99 Myoview injection. The images were gated to evaluate regional wall motion and calculate ventricular ejection fraction.Images were reconstructed using backfilter projection method in short horizontal and verticle long axis. Spect slices were generated. LV Perfusion The quality of the study is good. The left ventricle is moderatley enlarged in size. The right ventricle is unremarkable. The lung uptake is within normal limits. The distribution of tracer reveals normal uptake pattern in the myocardium on the stress study. The remainder of the LV myocardium is unremarkable. The rest myocardial perfusion study shows no significant change. Wall Motion Wall motion study shows diffuse hypokinesis of the left ventricle. LVEF = 23%. Conclusion 1. Abnormal SPECT myocardial perfusion study. 2. There is discrete perfusion abnormality. 3. Severe LV dysfunction with diffuse hypokinesis. 4. The above findings are suggestive of cardiomyopathy.
[2017-07-30] MEDS ORDERED: Potassium Chloride 20 mEq ER Tab PO SCH (08:00)
[2017-07-30] MEDS ORDERED: Digoxin 250 mcg (0.25 mg) Tab PO SCH (14:00)
== END 2017-07-29 21:56 | disposition home or self-care (01) | DRG 124 ==
LOC: ED 13:08 → ERH 15:38 → 2RNO 18:40
PROVIDERS: ADMIT Internal Medicine; ATTEND Internal Medicine
PROC: 4A023N7 Measurement of Cardiac Sampling and Pressure, Left Heart, Percutaneous Approach (ICD-10-PCS; principal; 2017-07-29)
PROC: B2111ZZ Fluoroscopy of Multiple Coronary Arteries using Low Osmolar Contrast (ICD-10-PCS; 2017-07-29)
PROC: B2151ZZ Fluoroscopy of Left Heart using Low Osmolar Contrast (ICD-10-PCS; 2017-07-29)
DX: I42.8 Other cardiomyopathies (principal); I25.10 Atherosclerotic heart disease of native coronary artery without angina pectoris; E11.9 Type 2 diabetes mellitus without complications; E87.6 Hypokalemia; I10 Essential (primary) hypertension; F41.9 Anxiety disorder, unspecified; E78.00 Pure hypercholesterolemia, unspecified; E66.9 Obesity, unspecified; Z68.27 Body mass index [BMI] 27.0-27.9, adult; Z91.14 Patient's other noncompliance with medication regimen; Z87.891 Personal history of nicotine dependence; Z79.84 Long term (current) use of oral hypoglycemic drugs; Z86.73 Personal history of transient ischemic attack (TIA), and cerebral infarction without residual deficits; Z91.19 Patient's noncompliance with other medical treatment and regimen

== ENCOUNTER 2018-08-07 16:37 | Emergency (ER) | payer OTHER ==
[2018-08-07 16:37] VITALS: BMI 27.4
[2018-08-07 16:44] VITALS: RESP 18; TEMP 97.3
[2018-08-07 17:36] LABS: BASO # 0.03 K/mm3 (0.0-2.0); BASO % 0.6 % (0.0-3.0); EOS # 0.1 (0.0-0.7); EOS % 2.3 % (1.5-5.0); HEMOGLOBIN 14.8 g/dL (14.0-18.0); LYMPH # 2.4 (1.2-3.4); LYMPH % 46.1 % (22.0-35.0); MEAN CELL VOLUME 82.7 fl (80.0-105.0); MEAN CORPUSCULAR HGB CONC 35.1 g/dl (31.0-37.0); MEAN PLATELET VOLUME 10.9 fl (7.0-11.0); MONO # 0.3 (0.1-0.6); RBC 5.1 10^6/uL (3.5-6.1); WHITE BLOOD COUNT 5.2 10^3/uL (4.5-11.0)
[2018-08-07 17:45] LABS: INR 0.98; PROTHROMBIN TIME 10.9 SECONDS (9.4-12.5)
--- NOTE | 2018-08-07 17:52 | ED PDOC ---
Arrival/HPI - General Chief Complaint: Dizziness/Lightheaded Time Seen by Provider: 08/07/18 16:42 Historian: Patient - History of Present Illness Narrative History of Present Illness (Text): 08/07/18 17:38 53yo male with pmhx of hypertension, Diabetes, Cardiomyopathy present with complaint of dizziness since today. Describes dizziness as spinning on standing. States he ran out of his medications and have not taken any medication for 2weeks. Denies chest pain, SOB, diaphoresis, focal weakness, nausea, vomiting, abdominal pain, fever, chills, any other complaint. Past Medical History - Provider Review Nursing Documentation Reviewed: Yes - Infectious Disease Hx of Infectious Diseases: None - Cardiac Hx Cardiac Disorders: Yes Hx MT: Yes Hx Hypertension: Yes - Pulmonary Hx Respiratory Disorders: No - Neurological Hx Neurological Disorder: No - HEENT Hx HEENT Disorder: No - Renal Hx Renal Disorder: No - Endocrine/Metabolic Hx Endocrine Disorders: Yes Hx Diabetes Mellitus Type 2: Yes - Hematological/Oncological Hx Blood Disorders: No - Integumentary Hx Dermatological Disorder: No - Musculoskeletal/Rheumatological Hx Falls: No - Gastrointestinal Hx Gastrointestinal Disorders: No - Genitourinary/Gynecological Hx Genitourinary Disorders: No - Psychiatric Hx Psychophysiologic Disorder: No Hx Substance Use: No - Anesthesia Hx Anesthesia: No Family/Social History - Physician Review Nursing Documentation Reviewed: Yes Family/Social History: Unknown Family HX Smoking Status: Never Smoked Hx Alcohol Use: No Hx Substance Use: No Allergies/Home Meds Allergies/Adverse Reactions: Allergies No Known Allergies Allergy (Verified 08/07/18 16:39) Review of Systems - Physician Review All systems were reviewed & negative as marked: Yes - Review of Systems Constitutional: Normal Eyes: Normal ENT: Normal Respiratory: Normal Cardiovascular: Normal Gastrointestinal: Normal Genitourinary Male: Normal Musculoskeletal: Normal Skin: Normal Neurological: Dizziness Endocrine: Normal Hemo/Lymphatic: Normal Psychiatric: Normal Physical Exam Vital Signs Reviewed: Yes Vital Signs Temp Pulse Resp BP Pulse Ox 08/07/18 16:43 97.3 F L 84 18 145/81 97 Temperature: Afebrile Blood Pressure: Normal Pulse: Regular Respiratory Rate: Normal Appearance: Positive for: Well-Appearing, Non-Toxic, Comfortable Pain Distress: None Mental Status: Positive for: Alert and Oriented X 3 Finger Stick Blood Glucose: 363 - Systems Exam Head: Present: Atraumatic, Normocephalic Pupils: Present: PERRL Extroacular Muscles: Present: EOMI Conjunctiva: Present: Normal Mouth: Present: Moist Mucous Membranes Neck: Present: Normal Range of Motion Respiratory/Chest: Present: Clear to Auscultation, Good Air Exchange. No: Respiratory Distress, Accessory Muscle Use Cardiovascular: Present: Regular Rate and Rhythm, Normal S1, S2. No: Murmurs Abdomen: No: Tenderness, Distention, Peritoneal Signs Back: Present: Normal Inspection Upper Extremity: Present: Normal Inspection. No: Cyanosis, Edema Lower Extremity: Present: Normal Inspection. No: Edema Neurological: Present: GCS=15, CN II-XII Intact, Speech Normal, Motor Func Grossly Intact, Normal Sensory Function, Normal Cerebellar Funct, Norm Deep Tendon Reflexes, Gait Normal, Memory Normal, Other (No focal neurological deficit) Skin: Present: Warm, Dry, Normal Color. No: Rashes Psychiatric: Present: Alert, Oriented x 3, Normal Insight, Normal Concentration Medical Decision Making ED Course and Treatment: 08/08/18 02:04 PT present to ED for stated history. He was neurologically intact and ambulatory in ED and in no distress. His FS was elevated in ED. Pt is not compliant with his medications Labs orthostatic htn IVF Insulin EKG Labs was unremarkable with exception of the elevated BS. NSR @ 69bpm. T wave abnormality of inferior leads. Pt's BS improved in ED s/p hydration and insulin He was seriously educated on the importance of taking his medications and the complication. He left the ED before getting his prescriptions/DC papers. Disposition/Present on Arrival - Present on Arrival Any Indicators Present on Arrival: No History of DVT/PE: No History of Uncontrolled Diabetes: No Urinary Catheter: No History of Decub. Ulcer: No History Surgical Site Infection Following: None - Disposition Have Diagnosis and Disposition been Completed?: Yes Diagnosis: Dizziness, Hyperglycemia Disposition: HOME/ ROUTINE Disposition Time: 21:20 Patient Plan: Discharge Condition: STABLE Discharge Instructions (ExitCare): Hyperglycemia, Adult (DC), Diabetes and Diet Prescriptions: Aspirin [Ecotrin] 81 mg PO DAILY #15 tabec Atorvastatin [Lipitor] 20 mg PO DAILY #15 tab Carvedilol [Coreg] 3.125 mg PO BID #30 tab Digoxin [Lanoxin] 0.25 mg PO DAILY #15 tab Lisinopril [Zestril] 10 mg PO DAILY #15 tablet MetFORMIN [glucoPHAGE] 1,000 mg PO BID #30 tab Referrals: Brittnee Green MD [Medical Doctor] - Follow up with primary Forms: [employer] (Yoruba)
[2018-08-07 18:03] LABS: TROPONIN I < 0.01 ng/mL
[2018-08-07 18:16] LABS: ALB/GLOB RATIO 1.2 (1.1-1.8); ALT/SGPT 20 U/L (7-56); AST/SGOT 25 U/L (17-59); BLOOD UREA NITROGEN 18 mg/dL (7-21); CALCIUM 8.8 mg/dL (8.4-10.5); GFR NON-AFRICAN AMERICAN > 60
[2018-08-07] MEDS ORDERED: Sodium Chloride 0.9% 1,000 ML IV STA ×2 (18:19→20:14)
[2018-08-07] MEDS ORDERED: Insulin Regular 1 UNITS/0.01 ML ML IVP STA ×2 (18:19→20:14)
[2018-08-07 20:52] LABS: URINE BILIRUBIN NEGATIVE (NEGATIVE); URINE BLOOD NEGATIVE (NEGATIVE); URINE GLUCOSE (UA) >=1000 mg/dL (NEGATIVE); URINE LEUKOCYTE ESTERASE NEGATIVE Leu/uL (NEGATIVE); URINE PROTEIN NEGATIVE mg/dL (<30 mg/dL); URINE UROBILINOGEN 0.2 E.U./dL (<1 E.U./dL)
[2018-08-07 20:58] LABS: URINE APPEARANCE CLEAR (CLEAR); URINE COLOR YELLOW (YELLOW)
[2018-08-07 21:00] VITALS: BP 138/68; PULSE 71; O2SAT 98
--- NOTE | 2018-08-08 08:24 | CARD ---
APPROVED REPORT Date of service: 08/07/2018 EKG Measurement Heart [id number] <Conclusion> Normal sinus rhythm T wave abnormality, consider inferior ischemia Abnormal ECG
== END 2018-08-07 23:01 | disposition home or self-care (01) ==
LOC: ED 16:37
DX: E11.65 Type 2 diabetes mellitus with hyperglycemia (principal); R42 Dizziness and giddiness; I10 Essential (primary) hypertension; I25.2 Old myocardial infarction
CPT/HCPCS: 80053; 81003; 82550; 82948; 83615; 83735; 84484; 85025; 85610; 85730; 93005; 96361; 96374; 96376; 99285; J7030